=== PATIENT | female | born 1985 | race Caucasian/White ===

== ENCOUNTER 2020-03-06 10:32 | Emergency (ER) | payer SELFPAY ==
[2020-03-06 10:40] VITALS: BP 130/97
[2020-03-06] MEDS ORDERED: ONDANSETRON 4 MG TAB.RAPDIS PO ONE (10:59)
[2020-03-06] MEDS ORDERED: TRAMADOL HCL 50 MG TABLET PO ONE (10:59)
--- NOTE | 2020-03-06 11:00 | ER Document Report ---
ED Medical Screen (RME) - General Chief Complaint: Arm Pain Stated Complaint: FALL/ARM PAIN Time Seen by Provider: 03/06/20 10:59 Notes: Patient is a 34-year-old white female with no significant past medical history presents the emergency department the chief complaint of right elbow pain after fall that occurred prior to arrival. She tripped over her daughter and her dog falling backwards landing on the flexed right elbow. States at first it was a little sore but she can move it and then after a few movements she felt severe pain and had to keep it held in a 9 degree flexion. She has a homemade sling on the arm and presents to the ED. Denies any numbness tingling or weakness. I have treated and performed a rapid initial assessment of this patient. A comprehensive ED assessment and evaluation of the patient, analysis of test r esults and completion of medical decision making process will be conducted by additional ED providers. PHYSICAL EXAMINATION: GENERAL: Well-appearing, well-nourished and in no acute distress. A&Ox4. Answers questions appropriately. TRAVEL OUTSIDE OF THE [place] IN LAST 30 DAYS: No - Related Data Allergies/Adverse Reactions: No Known Allergies Allergy (Verified 03/06/20 10:56) Past Medical History - Immunizations Hx Diphtheria, Pertussis, Tetanus Vaccination: - unknown Physical Exam - Vital signs Vitals: Temp Pulse Resp BP Pulse Ox 98.7 F 91 16 130/97 H 98 03/06/20 10:37 03/06/20 10:37 03/06/20 10:37 03/06/20 10:37 03/06/20 10:37 Course - Vital Signs Vital signs: Temp Pulse Resp BP Pulse Ox 98.7 F 91 16 130/97 H 98 03/06/20 10:37 03/06/20 10:37 03/06/20 10:37 03/06/20 10:37 03/06/20 10:37
--- NOTE | 2020-03-06 11:50 | RADIOLOGY REPORT (SQ) ---
EXAM DESCRIPTION: ELBOW RIGHT OVER 2 VIEWS IMAGES COMPLETED DATE/TIME: 03/06/2020 11:27 am REASON FOR STUDY: pain COMPARISON: None. NUMBER OF VIEWS: Three views. TECHNIQUE: AP, lateral, and single oblique radiographic images acquired of the right elbow. LIMITATIONS: None. FINDINGS: MINERALIZATION: Normal. BONES: There is a moderately displaced radial head fracture. JOINT: A joint effusion is present. SOFT TISSUES: No soft tissue swelling. No foreign body. OTHER: No other significant finding. IMPRESSION: Moderately displaced radial head fracture with joint effusion. TECHNICAL DOCUMENTATION: JOB ID: [id number] [address] [employer]- All Rights Reserved Reading location - IP/workstation name: [email or web address]
--- NOTE | 2020-03-06 12:18 | ER Document Report ---
ED General - General Chief Complaint: Arm Injury Stated Complaint: FALL/ARM PAIN Time Seen by Provider: 03/06/20 10:59 Notes: Patient is a 34-year-old white female with no significant past medical history presents the emergency department the chief complaint of right elbow pain after fall that occurred prior to arrival. She tripped over her daughter and her dog falling backwards landing on the flexed right elbow. States at first it was a little sore but she can move it and then after a few movements she felt severe pain and had to keep it held in a 9 degree flexion. She has a homemade sling on the arm and presents to the ED. Denies any numbness tingling or weakness. TRAVEL OUTSIDE OF THE [place] IN LAST 30 DAYS: No - Related Data Allergies/Adverse Reactions: No Known Allergies Allergy (Verified 03/06/20 10:56) Past Medical History - Social History Smoking Status: Current Every Day Smoker Chew tobacco use (# tins/day): No Frequency of alcohol use: Occasional Drug Abuse: None Family History: Reviewed & Not Pertinent Patient has homicidal ideation: No - Immunizations Hx Diphtheria, Pertussis, Tetanus Vaccination: - unknown Review of Systems - Review of Systems Constitutional: denies: Fever EENT: denies: Difficulty swallowing Cardiovascular: denies: Chest pain Respiratory: denies: Short of breath Gastrointestinal: denies: Abdominal pain, Vomiting Genitourinary: denies: Pain Female Genitourinary: denies: Musculoskeletal: Joint pain Skin: denies: Change in color Hematologic/Lymphatic: denies: Easy bruising Neurological/Psychological: denies: Headaches Physical Exam - Vital signs Vitals: Temp Pulse Resp BP Pulse Ox 98.7 F 91 16 130/97 H 98 03/06/20 10:37 03/06/20 10:37 03/06/20 10:37 03/06/20 10:37 03/06/20 10:37 - General General appearance: Appears well, Alert In distress: None - Respiratory Respiratory status: No respiratory distress Chest status: Nontender Breath sounds: Normal Chest palpation: Normal - Cardiovascular Rhythm: Regular Heart sounds: Normal auscultation - Extremities Notes: Right Elbow held in 90 degrees of flexion, hesitant to move for range of motion testing therefore limited. Neurovascular intact distally 2+ radial. Limited supination and pronation due to pain. [employer] strength 4 out of 5 on the right as compared with the left. Nontender proximal humerus or deltoid. No obvious deformities, step-off or crepitus. - Neurological Neuro grossly intact: Yes Cognition: Normal Orientation: AAOx4 - Psychological Associated symptoms: Normal affect, Normal mood - Skin Skin Temperature: Warm Skin Moisture: Dry Skin Color: Normal Course - Re-evaluation Re-evalutation: 03/06/20 12:16 X-ray showing a moderately displaced radial head fracture per radiologist. Called and spoke with orthopedist on-call, Dr. Drake who advises splint placement and referral to his office outpatient. Discussed this with the patient who requested I call her Elio and inform him of the news. I have done this per her request. They are aware of the plan to splint and follow-up with Dr. Drake. Will provide a short course of pain medications. Dr. Drake called back and requested that we CT scan the arm prior to discharge for evaluation of possible surgical repair. Patient will be CAT scan and then splinted. Plan will still be for discharge. Discussed with her and her and her sister who is here at bedside with her the importance of outpatient follow-up with Dr. Drake as discussed. Advised they return here or any ER immediately with any new, persistent or worsening symptoms. She verbalized understood and agreed. - Vital Signs Vital signs: Temp Pulse Resp BP Pulse Ox 98.7 F 91 16 130/97 H 98 03/06/20 10:56 03/06/20 10:37 03/06/20 10:37 03/06/20 10:37 03/06/20 10:37 Discharge - Discharge Clinical Impression: Radial head fracture, closed Qualifiers: Encounter type: initial encounter Fracture alignment: displaced Laterality: right Qualified Code(s): S52.121A - Displaced fracture of head of right radius, initial encounter for closed fracture Condition: Stable Disposition: HOME, SELF-CARE Instructions: Radial Head Fracture ([facility]) Additional Instructions: Please call Dr. Drake for outpatient follow-up and further management. Please return here or any ER immediately with any new, persistent or worsening symptoms. Prescriptions: Hydrocodone/Acetaminophen [[place] 5-325 mg Tablet] 1 tab PO Q6 PRN #12 tablet PRN Reason: Ondansetron [Zofran Odt 4 mg Tablet] 4 mg PO Q8 PRN #20 tab.rapdis PRN Reason: Referrals: CHRISTIN DRAKE MD [ACTIVE STAFF] - Follow up as needed
--- NOTE | 2020-03-06 13:07 | RADIOLOGY REPORT (SQ) ---
EXAM DESCRIPTION: CT RT UPPER EXTREMITY WITHOUT IMAGES COMPLETED DATE/TIME: 03/06/2020 12:52 pm REASON FOR STUDY: Radial head fx COMPARISON: 03/06/2020 radiographs TECHNIQUE: Axial acquisition was performed through the right elbow. Coronal and sagittal reformats are provided. LIMITATIONS: None. FINDINGS: Re- demonstration of a moderately displaced radial head fracture with an approximately 2 m m gap in the articular surface. Osseous mineralization and alignment are otherwise normal. The surr ounding soft tissues are unremarkable. IMPRESSION: Moderately displaced radial head fracture with an approximately 2 mm gap in the articula r surface. TECHNICAL DOCUMENTATION: JOB ID: [id number] 2010 [employer]- All Rights Reserved Reading location - IP/workstation name: [email or web address]
== END 2020-03-06 13:05 | disposition home or self-care (01) ==
LOC: ER 10:32
PROC: 2W3CX1Z Immobilization of Right Lower Arm using Splint (ICD-10-PCS; principal; 2020-03-06)
DX: S52.121A Displaced fracture of head of right radius, initial encounter for closed fracture (principal); M25.521 Pain in right elbow; W01.0XXA Fall on same level from slipping, tripping and stumbling without subsequent striking against object, initial encounter; F17.200 Nicotine dependence, unspecified, uncomplicated
CPT/HCPCS: 99284; 73080; 73200; 29125; S0119